=== PATIENT | female | born 1990 | race Two or more races ===

== ENCOUNTER 2025-05-26 00:47 | Outpatient (CLI) | payer OTHER ==
[2025-05-25 23:16] VITALS: BP 114/72
[2025-05-26] MEDS ORDERED: PRENATABS RX T1 EACH PO (00:51)
[2025-05-26 03:38] VITALS: BP 112/73
[2025-05-26 07:15] VITALS: BP 114/74
[2025-05-26 10:29] VITALS: BP 121/71
== END 2025-05-26 10:33 | disposition home or self-care (01) ==
LOC: OBS/DEL 00:47
PROVIDERS: ATTEND Obstetrics & Gynecology
DX: O26.893 Other specified pregnancy related conditions, third trimester (principal); Z3A.33 33 weeks gestation of pregnancy

== ENCOUNTER 2025-05-30 10:55 | Outpatient (CLI) | payer OTHER ==
[~2025-05-30 10:55] MED LIST: PRENATABS RX T1 EACH PO
== END 2025-05-30 11:52 | disposition home or self-care (01) ==
LOC: NST 10:55
PROVIDERS: ATTEND Obstetrics & Gynecology Maternal & Fetal Medicine
DX: Z34.83 Encounter for supervision of other normal pregnancy, third trimester (principal)

== ENCOUNTER 2025-06-27 08:45 | Inpatient (IN) | payer OTHER ==
[~2025-06-27] VITALS: Ht 149.9 cm; Wt 3.2 kg
[2025-06-27 10:05] LABS: BASO % 0.5 % (0.1-1.2); EOS # 0.08 (0.04-0.54); EOS % 0.8 % (0.7-7.0); LYMPH # 2.18 (1.18-3.74); LYMPH % 21.9 % (19.3-53.1); MEAN PLATELET VOLUME 10.20 fl (9.4-12.4); MONO # 0.43 (0.24-0.82); MONO % 4.3 % (4.7-12.5); NEUT # 7.10 (1.56-6.13); NEUT % 71.2 % (34.0-71.1); RED CELL DISTRIBUTION WIDTH 14.7 % (11.6-14.4)
[2025-06-27 10:10] LABS: URINE APPEARANCE Clear; URINE BILIRRUBIN Negative (NEGATIVE); URINE BLOOD Negative; URINE COLOR Yellow; URINE GLUCOSE Negative (NEGATIVE); URINE KETONE Trace (NEGATIVE); URINE LEUKOCYTE Negative; URINE NITRATE Negative; URINE PROTEIN Negative (NEGATIVE); URINE UROBILINOGEN 0.2 E.U./dl
[2025-06-27 10:14] LABS: URINE BACTERIA 62.3 uL (0.0-1933); URINE EPITHELIAL CELLS 69.9 uL (0.0-38.8); URINE RBC 3.6 uL (0.0-20.8); URINE WBC 9.9 uL (0.0-23.2)
[2025-06-27 10:23] LABS: URINE CAST 0.00 uL (0.0-1.40)
[2025-06-27 10:40] LABS: ALT/SGPT 17.0 U/L (12-78); AST/SGOT 14.0 U/L (15-37); BILIRUBIN TOTAL 0.75 mg/dL (0.3-1.2); BUN CREA RATIO 12.0 (7.0-25.0); CREATININE SERUM 0.42 mg/dL (0.55-1.02); GFR 171.69; GLOBULINA 3.2 G/DL (2.4-3.5); GLUCOSE FASTING 129.0 mg/dL (65-100); OSMOLALITY SERUM 280.0 MOSM/KG (275-295)
[2025-06-27 10:46] LABS: INR 0.94
[2025-07-03 11:19] VITALS: BP 111/74
[2025-07-03] MEDS ORDERED: MORPHINE SULFATE 4 MG/ML CARTRIDGE IV PRN ×2 (14:00→20:00)
[2025-07-03] MEDS ORDERED: OXYTOCIN 10 UNITS/ML VIAL IV ONE (14:00)
[2025-07-03] MEDS ORDERED: OXYTOCIN 1,000 ML IV SCH (14:00)
[2025-07-03] MEDS ORDERED: CITRIC ACID/SODIUM CITRATE 30 ML BLIST.PACK PO SCH (14:00)
[2025-07-03] MEDS ORDERED: ERYTHROMYCIN BASE OPHT 1GM EACH TUBE OP ONE (14:00)
[2025-07-03] MEDS ORDERED: CEFAZOLIN SODIUM 1,000 MG VIAL IV SCH (14:00)
[2025-07-03] MEDS ORDERED: MORPHINE SULFATE 4 MG/ML VIAL IV ONE (15:20)
[2025-07-03] MEDS ORDERED: GABAPENTIN 300 MG CAPSULE PO SCH ×2 (17:00→20:00)
[2025-07-03 21:09] VITALS: BP 117/70
[2025-07-03] MEDS ORDERED: ACETAMINOPHEN 500 MG GEL..CAP PO PRN (22:45)
[2025-07-04] VITALS: BP 113/68
[2025-07-04] MEDS ORDERED: ACETAMINOPHEN 325 MG TABLET PO SCH (07:39)
[2025-07-04 10:00] VITALS: BP 96/65
[2025-07-04 11:11] LABS: BASO % 0.5 % (0.1-1.2); EOS # 0.04 (0.04-0.54); EOS % 0.4 % (0.7-7.0); LYMPH # 1.11 (1.18-3.74); LYMPH % 10.6 % (19.3-53.1); MEAN PLATELET VOLUME 10.40 fl (9.4-12.4); MONO # 0.51 (0.24-0.82); MONO % 4.9 % (4.7-12.5); NEUT # 8.69 (1.56-6.13); NEUT % 82.8 % (34.0-71.1); RED CELL DISTRIBUTION WIDTH 15.1 % (11.6-14.4)
[2025-07-04] MEDS ORDERED: SIMETHICONE 125 MG CAPSULE PO SCH (14:03)
[2025-07-04 16:20] VITALS: BP 120/84
[2025-07-04] MEDS ORDERED: DOCUSATE SODIUM 100MG CAP PO SCH (17:08)
[2025-07-04 20:00] VITALS: BP 120/78
[2025-07-05] VITALS: BP 96/60
[2025-07-05] MEDS ORDERED: OxyCODONE HCL 5 MG TABLET (ROXICODONE) PO PRN (06:00)
[2025-07-05 08:00] VITALS: BP 112/75
[2025-07-05] MEDS ORDERED: BISACODYL 10 MG/SUPP.RECT SUPP.RECT RECTAL NR (09:00)
== END 2025-07-05 13:52 | disposition home or self-care (01) | DRG 788 ==
LOC: OB/GYN 07-03 07:00 → O/R 07-03 08:15 → OB/GYN 07-03 08:45
PROVIDERS: ADMIT Obstetrics & Gynecology; ATTEND Obstetrics & Gynecology
PROC: 4A1HXCZ Monitoring of Products of Conception, Cardiac Rate, External Approach (ICD-10-PCS; 2025-07-03)
PROC: 10D00Z1 Extraction of Products of Conception, Low, Open Approach (ICD-10-PCS; principal; 2025-07-03 07:00)
DX: O34.211 Maternal care for low transverse scar from previous cesarean delivery (principal); Z3A.39 39 weeks gestation of pregnancy; Z37.0 Single live birth